=== PATIENT | female | born 1945 | race Caucasian/White ===

== ENCOUNTER 2017-09-26 11:49 | Inpatient (IN) | payer MEDICARE, MEDICAID ==
[~2017-09-26] VITALS: Ht 170.2 cm; Wt 99.8 kg
[2017-09-26] MEDS ORDERED: [UNRECOGNIZED DRUG - OTHER] (12:07)
[2017-09-26] MEDS ORDERED: DIPHENHYDRAMINE PO (12:07)
[2017-09-26] MEDS ORDERED: methylPREDNISolone SOD SUCC 125 MG/2 ML VIAL ONE (12:15)
[2017-09-26] MEDS ORDERED: DEXTROSE 5% IV ONE (12:15)
[2017-09-26] MEDS ORDERED: methylPREDNISolone SOD SUCC 125 MG/2 ML VIAL IV ONE (12:15)
[2017-09-26] MEDS ORDERED: FAMOTIDINE IV ONE (12:15)
[2017-09-26] MEDS ORDERED: FAMOTIDINE. 20 MG/2 ML VIAL IV ONE ×2 (12:15→12:26)
[2017-09-26] MEDS: FAMOTIDINE. 20 MG/2 ML VIAL IV ONE ×2 (12:20→12:25)
[2017-09-26 12:30] LABS: BASOPHILS % (AUTO) 0.3 % (0.0-2.0); EOSINOPHILS % (AUTO) 0.3 % (0.0-7.0); HEMATOCRIT 40.1 % (31.2-41.9); HEMOGLOBIN 13.3 g/dL (10.9-14.3); LYMPHOCYTES # (AUTO) 1.2 K/uL (20.0-40.0); LYMPHOCYTES % (AUTO) 18.6 % (20.5-51.5); MEAN CORPUSCULAR HEMOGLOBIN 30.1 uug (24.7-32.8); MEAN CORPUSCULAR HGB CONC 33 g/dL (32.3-35.6); MEAN CORPUSCULAR VOLUME 90.8 fL (75.5-95.3); MONOCYTES # (AUTO) 0.5 K/uL (2.0-10.0); MONOCYTES % (AUTO) 7.5 % (0.0-11.0); NEUTROPHILS # (AUTO) 4.7 K/uL (1.8-8.9); NEUTROPHILS % (AUTO) 73.3 % (38.5-71.5); PLATELET COUNT (AUTO) 201 K/uL (179-408); RED BLOOD CELL COUNT(AUTO) 4.42 MIL/uL (3.63-4.92); WHITE BLOOD COUNT (AUTO) 6.5 K/uL (3.8-11.8)
[2017-09-26 12:41] LABS: CREATININE 0.9 mg/dL (0.6-1.3); POTASSIUM 3.5 mmol/L (3.5-5.1)
[2017-09-26 13:02] LABS: BILIRUBIN,DIRECT 0.1 mg/dL (0.0-0.2); BILIRUBIN,TOTAL 0.6 mg/dL (0.2-1.0); TOTAL PROTEIN, SERUM 7.6 g/dL (6.4-8.2)
--- NOTE | 2017-09-26 13:55 | NUR ---
PT RESTING, RA 96%, NO SIGN OF DISTRESS.
--- NOTE | 2017-09-26 14:46 | NUR ---
LISA GILMORE AT BEDSIDE IN ROOM 02A.
--- NOTE | 2017-09-26 14:53 | NUR ---
Pt. admitted to TELE , under care of Dr. 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
--- NOTE | 2017-09-26 15:00 | NUR ---
TRNASFERED TO FLOOR IN STABLE CONDITION.PT BREATHING NORMALLY, NO FACIAL SWELL, ABLE TO SWALLOW WITHOUT DIFFICULTY.
[2017-09-26] MEDS ORDERED: LORAZEPAM 0.5 MG TABLET PO PRN (15:15)
[2017-09-26] MEDS ORDERED: ONDANSETRON 4 MG/2 ML VIAL IV PRN (15:15)
[2017-09-26] MEDS ORDERED: HYDROCODONE/APAP 5-325MG TABLET PO PRN (15:15)
[2017-09-26] MEDS ORDERED: IPRATROPIUM BROMIDE 0.5 MG/2.5 ML NEBU NEB PRN (15:45)
[2017-09-26] MEDS ORDERED: ALBUTEROL SULFATE 2.5 MG/3 ML NEBU NEB PRN (15:45)
--- NOTE | 2017-09-26 15:54 | NUR ---
72 YEAR OLD FEMALE ADMITTED TO ROOM 222 FOR ALLERGIC REACTION .PT IS AXOX4.ORIENT THEPT TO ROOM AND SURROUNDINGS. CALLED FOR THE ADMISSION ORDERS
[2017-09-26 15:56] VITALS: BP 117/78
[2017-09-26] MEDS: IV NS 1000 ML 1,000 ML IV PRN (15:59)
[2017-09-26] MEDS: diphenhydrAMINE 50 MG/1 ML VIAL IV SCH ×2 (17:19→23:55)
[2017-09-26] MEDS: HYDROCORTISONE 2.5% CREAM 20 GM TUBE TOP SCH ×2 (17:21→20:56)
[2017-09-26 19:53] LABS: *BILIRUBIN,URIN NEGATIVE (NEGATIVE); *BLOOD, URINE NEGATIVE (NEGATIVE); *CLARITY,URINE CLEAR (CLEAR); *COLOR,URINE YELLOW (YELLOW); *KETONES,URINE 1+ (NEGATIVE); *PROTEIN,URINE NEGATIVE (NEGATIVE); *UROBILINOGEN,URINE 0.2 E.U./dl (NORMAL); LEUKOCYTE ESTERASE ,URINE TRACE (NEGATIVE); NITRITE, URINE NEGATIVE (NEGATIVE); PH,URINE 7.5 (5.0-8.0); UGLUCOSE NEGATIVE (NEGATIVE)
[2017-09-26 20:00] VITALS: BP 152/76
[2017-09-26 20:42] LABS: RBC,URINE 0-3 /HPF (0-3); SQUAMOUS EPITHELIAL CELL,UR MODERATE /HPF (NONE SEEN)
[2017-09-26] MEDS: methylPREDNISolone SOD SUCC 40 MG/ML VIAL IV SCH (20:55)
[2017-09-26] MEDS: FAMOTIDINE. 20 MG/2 ML VIAL IV SCH (20:56)
[2017-09-26] MEDS: ENOXAPARIN SODIUM 40 MG/0.4 ML DISP.SYRIN SQ SCH (20:57)
[2017-09-26] MEDS: ACETAMINOPHEN 325 MG TABLET PO PRN (21:07)
--- NOTE | 2017-09-26 23:55 | NUR ---
NO ACTIVE RASH OR C/O ITCHING AT THIS TIME. NO NEED FOR BENADRYL. CONTINUE TO MONITOR. PT ASLEEP IN NO ACUTE DISTRESS.
[2017-09-27] VITALS: BP 132/65
[2017-09-27 04:00] VITALS: BP 118/61
[2017-09-27] MEDS: methylPREDNISolone SOD SUCC 40 MG/ML VIAL IV SCH ×3 (05:04→20:29)
[2017-09-27] MEDS: diphenhydrAMINE 50 MG/1 ML VIAL IV SCH (05:46)
--- NOTE | 2017-09-27 05:46 | NUR ---
PT VERBALIZES NO C/O ITCHING OR HIVES NOTED AT THIS TIME. NO NEED FOR ROUTINE BENADRYL. CONTINUE TO MONITOR.
--- NOTE | 2017-09-27 06:00 | NUR ---
PT IN ROOM ALERT AWAKE IN NO ACUTE DISTRESS. NO INCREASED EPISODES OF ITCHING OR C/O HIVES AT THIS TIME. DENIES ANY SOB. STATES SLIGHT HEADACHE BUT PREVIOUS [place] WAS ABLE TO HELP. CONTINUE TO MONITOR. CALL LIGHT PLACED WITHIN REACH.
[2017-09-27 06:35] LABS: HEMATOCRIT 36.8 % (31.2-41.9); HEMOGLOBIN 12.1 g/dL (10.9-14.3); LYMPHOCYTES # (AUTO) 0.4 K/uL (20.0-40.0); LYMPHOCYTES % (AUTO) 6.1 % (20.5-51.5); MEAN CORPUSCULAR HGB CONC 33 g/dL (32.3-35.6); MEAN CORPUSCULAR VOLUME 91.5 fL (75.5-95.3); MONOCYTES # (AUTO) 0.1 K/uL (2.0-10.0); MONOCYTES % (AUTO) 1.2 % (0.0-11.0); NEUTROPHILS # (AUTO) 6.1 K/uL (1.8-8.9); NEUTROPHILS % (AUTO) 92.7 % (38.5-71.5); PLATELET COUNT (AUTO) 167 K/uL (179-408); RED BLOOD CELL COUNT(AUTO) 4.02 MIL/uL (3.63-4.92); WHITE BLOOD COUNT (AUTO) 6.6 K/uL (3.8-11.8)
[2017-09-27 07:22] LABS: THYROID STIMULATING HORMONE 0.353 mIU/mL (0.358-3.740)
--- NOTE | 2017-09-27 07:37 | NUR ---
PT IN ROOM ALERT AWAKE IN NO ACUTE DISTRESS. NO INCREASED EPISODES OF ITCHING OR C/O HIVES AT THIS TIME. DENIES ANY SOB. CONTINUE TO MONITOR. CALL LIGHT PLACED WITHIN REACH.
[2017-09-27 07:59] LABS: BILIRUBIN,TOTAL 0.2 mg/dL (0.2-1.0); CREATININE 0.7 mg/dL (0.6-1.3); MAGNESIUM 1.8 mg/dL (1.8-2.4); PHOSPHOROUS 2.4 mg/dL (2.5-4.9); TOTAL PROTEIN, SERUM 6.6 g/dL (6.4-8.2)
[2017-09-27] MEDS: ENOXAPARIN SODIUM 40 MG/0.4 ML DISP.SYRIN SQ SCH (08:01)
[2017-09-27] MEDS: HYDROCORTISONE 2.5% CREAM 20 GM TUBE TOP SCH ×2 (08:01→20:58)
[2017-09-27] MEDS: FAMOTIDINE. 20 MG/2 ML VIAL IV SCH ×2 (08:09→20:29)
[2017-09-27] MEDS: ACETAMINOPHEN 325 MG TABLET PO PRN (08:12)
[2017-09-27] MEDS: IV NS 1000 ML 1,000 ML IV PRN (09:23)
[2017-09-27] MEDS ORDERED: NEUTRA PHOS PACKET PO ONE (10:00)
[2017-09-27] MEDS: LEVOFLOXACIN 500 MG/D5W 500 MG in PREMIXED 1 EACH IV SCH (10:40)
--- NOTE | 2017-09-27 11:00 | NUR ---
Pt is awake, alert, hyperverbal, seems very anxious. jumps from one topic to another. still c/o itching uses hydrocortisone cream. call light within reach. bed alarm on
[2017-09-27 11:15] VITALS: BP 115/57
[2017-09-27] MEDS ORDERED: PATIENT MAY USE OWN MED- MD OK PO PRN (14:15)
--- NOTE | 2017-09-27 15:04 | NUR ---
Visited patient to obtain information about food allergies. Patient states she is allergic to latex and has suspected allergic reaction to fennel oil. Provided diet education on 2gm NA. Patient states following low NA diet. Food preferences has been obtained earlier. Addendum: 09/27/17 at [address] Amended: Links added.
[2017-09-27 15:13] VITALS: BP 126/61
[2017-09-27] MEDS: diphenhydrAMINE 50 MG/1 ML VIAL IV PRN (17:41)
--- NOTE | 2017-09-27 20:00 | NUR ---
NSG: Pt is awake, alert, hyperverbal, seems very anxious. jumps from one topic to another. still has gen rashes. uses hydrocortisone cream. call light within reach. bed alarm on.
[2017-09-27 20:03] VITALS: BP 127/64
[2017-09-28] VITALS: BP 124/57
[2017-09-28] MEDS: IV NS 1000 ML 1,000 ML IV PRN (00:40)
[2017-09-28 04:00] VITALS: BP 110/53
--- NOTE | 2017-09-28 05:08 | NUR ---
nsg: pt did not sleep. hyperverbal and seems anxious but denies anxiety, stated she's calm. will notify md of patient's behavior.
--- NOTE | 2017-09-28 05:57 | NUR ---
nsg: pt very paranoid about bp of 115/53, stating she will have congestive heart failure. very anxious, still hyperverbal. will notify md regarding patient's behavior.
[2017-09-28 07:24] LABS: BASOPHILS % (AUTO) 0.1 % (0.0-2.0); HEMATOCRIT 37.8 % (31.2-41.9); HEMOGLOBIN 12.4 g/dL (10.9-14.3); LYMPHOCYTES # (AUTO) 0.6 K/uL (20.0-40.0); LYMPHOCYTES % (AUTO) 3.8 % (20.5-51.5); MEAN CORPUSCULAR HEMOGLOBIN 29.8 uug (24.7-32.8); MEAN CORPUSCULAR HGB CONC 33 g/dL (32.3-35.6); MEAN CORPUSCULAR VOLUME 91.2 fL (75.5-95.3); MONOCYTES # (AUTO) 0.6 K/uL (2.0-10.0); MONOCYTES % (AUTO) 3.6 % (0.0-11.0); NEUTROPHILS % (AUTO) 92.5 % (38.5-71.5); PLATELET COUNT (AUTO) 191 K/uL (179-408); RED BLOOD CELL COUNT(AUTO) 4.15 MIL/uL (3.63-4.92)
[2017-09-28 07:41] LABS: BILIRUBIN,TOTAL 0.3 mg/dL (0.2-1.0); CREATININE 0.7 mg/dL (0.6-1.3); PHOSPHOROUS 2.7 mg/dL (2.5-4.9); POTASSIUM 4.1 mmol/L (3.5-5.1); TOTAL PROTEIN, SERUM 6.8 g/dL (6.4-8.2)
[2017-09-28 07:46] LABS: WHITE BLOOD COUNT (AUTO) 15.2 K/uL (3.8-11.8)
[2017-09-28] MEDS: methylPREDNISolone SOD SUCC 40 MG/ML VIAL IV SCH (08:03)
[2017-09-28] MEDS: LEVOFLOXACIN 500 MG/D5W 500 MG in PREMIXED 1 EACH IV SCH (08:03)
[2017-09-28] MEDS: FAMOTIDINE. 20 MG/2 ML VIAL IV SCH (08:03)
[2017-09-28] MEDS: HYDROCORTISONE 2.5% CREAM 20 GM TUBE TOP SCH ×2 (08:10→21:34)
[2017-09-28 11:30] VITALS: BP 131/67
[2017-09-28 15:40] VITALS: BP 122/57
--- NOTE | 2017-09-28 19:00 | NUR ---
RECEIVED PATIENT IN HER ROOM. SHE IS A/O X4. PLEASANT AND COOPERATIVE. V/S STABLE. SHE IS IN NO ACUTE DISTRESS. SALINE LOCK IN HER RIGHT HAND PATENT AND INTACT. DENIES PAIN AT THIS TIME. SAFETY EMPHASIS. BED AT LOWEST POSITION. WHEELS LOCKED, ROOM FREE FROM CLUTTER, WELL-LIT. WILL CONTINUE TO MONITOR.
[2017-09-28 20:00] VITALS: BP 126/75
[2017-09-28] MEDS: FAMOTIDINE 20 MG TABLET PO SCH (21:33)
[2017-09-28] MEDS: diphenhydrAMINE 50 MG/1 ML VIAL IV PRN (21:42)
--- NOTE | 2017-09-28 21:45 | NUR ---
PATIENT C/O ITCHINESS. BENADRYL 25MG IV PRN GIVEN. WILL CONTINUE TO MONITOR.
--- NOTE | 2017-09-29 06:04 | NUR ---
Patient slept intermittently t/o shift. Hyperverbal. Anxious and interested in being discharged. Kept on Room Air. Vital signs stable. IV site patent and intact. No reaction to meds given. Safety and comfort measures maintained t/o shift. All meds given as ordered. All needs met.
[2017-09-29 06:57] VITALS: BP 122/55
[2017-09-29 07:36] LABS: BILIRUBIN,TOTAL 0.2 mg/dL (0.2-1.0); CREATININE 0.8 mg/dL (0.6-1.3); MAGNESIUM 1.9 mg/dL (1.8-2.4); PHOSPHOROUS 2.3 mg/dL (2.5-4.9); POTASSIUM 3.4 mmol/L (3.5-5.1); TOTAL PROTEIN, SERUM 7.2 g/dL (6.4-8.2)
[2017-09-29 07:51] LABS: BASOPHILS % (AUTO) 0.1 % (0.0-2.0); EOSINOPHILS % (AUTO) 0.1 % (0.0-7.0); HEMATOCRIT 40.3 % (31.2-41.9); HEMOGLOBIN 13.1 g/dL (10.9-14.3); LYMPHOCYTES # (AUTO) 1.9 K/uL (20.0-40.0); LYMPHOCYTES % (AUTO) 14.9 % (20.5-51.5); MEAN CORPUSCULAR HEMOGLOBIN 29.7 uug (24.7-32.8); MEAN CORPUSCULAR HGB CONC 32 g/dL (32.3-35.6); MEAN CORPUSCULAR VOLUME 91.7 fL (75.5-95.3); MONOCYTES % (AUTO) 7.9 % (0.0-11.0); NEUTROPHILS # (AUTO) 9.6 K/uL (1.8-8.9); PLATELET COUNT (AUTO) 208 K/uL (179-408); RED BLOOD CELL COUNT(AUTO) 4.39 MIL/uL (3.63-4.92); WHITE BLOOD COUNT (AUTO) 12.5 K/uL (3.8-11.8)
[2017-09-29] MEDS: FAMOTIDINE 20 MG TABLET PO SCH (08:22)
[2017-09-29] MEDS: HYDROCORTISONE 2.5% CREAM 20 GM TUBE TOP SCH (08:30)
[2017-09-29] MEDS ORDERED: methylPREDNISolone SOD SUCC 40 MG/ML VIAL IV SCH (09:00)
--- NOTE | 2017-09-29 09:24 | NUR ---
pt seen on rounding. pt continues to be alert and oriented x4. no allergic reactions seen. pt given meds and solumedrol. iv site intact. pt continues to go to the restroom on her own. pt is steady on walking. pt verbalizes concern about plastic tape since she states taht she is allergic to latex. applied hydrocortizone cream on affected areas. will continue to monitor.
[2017-09-29] MEDS ORDERED: POTASSIUM CHLORIDE 10 MEQ TAB.PRT.SR PO ONE (11:00)
[2017-09-29] MEDS ORDERED: POTASSIUM PHOSPHATE MM 7.5 MMOL in IV DEXTROSE 5% 100 ML IV ONE (11:00)
[2017-09-29 11:31] VITALS: BP 144/64
[2017-09-29] MEDS ORDERED: NEUTRA PHOS PACKET PO ONE (12:00)
[2017-09-29] MEDS ORDERED: MIRT15TA7 PO (12:32)
[2017-09-29] MEDS ORDERED: PRED-170 PO (12:32)
[2017-09-29] MEDS ORDERED: PRED10TA PO (12:32)
[2017-09-29] MEDS ORDERED: HYDR20CR3 TOP (12:32)
--- NOTE | 2017-09-29 13:46 | NUR ---
pt discharged as ordred by . pt given prescriptions and discharge instructions by kaylee Calero. pt verbalizes understanding. pt given original copy of dc papers and belongings list. pt signed all papers. copies placed in chart. hives have subsided. iv discontinued. vitals stable upon discharge. pt left with all belongings. pt left with daughter. no sob noted. no signs of acute distresss.
[2017-09-29] MEDS ORDERED: MIRTAZAPINE 15 MG TABLET PO SCH (21:00)
[2017-09-30] MEDS ORDERED: predniSONE 10 MG TABLET PO SCH (09:00)
[2017-10-01] MEDS ORDERED: predniSONE 5 MG TABLET PO SCH (09:00)
== END 2017-09-29 13:32 | disposition home or self-care (01) | DRG 607 ==
LOC: ER 11:54 → TELE 15:12 → MED 09-28 10:25
PROVIDERS: ADMIT Internal Medicine; ATTEND Nurse Practitioner Acute Care
DX: L50.0 Allergic urticaria (principal); E44.0 Moderate protein-calorie malnutrition; D69.6 Thrombocytopenia, unspecified; E83.39 Other disorders of phosphorus metabolism; G62.9 Polyneuropathy, unspecified; F31.32 Bipolar disorder, current episode depressed, moderate; E66.9 Obesity, unspecified; F41.9 Anxiety disorder, unspecified; T50.995A Adverse effect of other drugs, medicaments and biological substances, initial encounter; Y92.009 Unspecified place in unspecified non-institutional (private) residence as the place of occurrence of the external cause; K58.9 Irritable bowel syndrome, unspecified; Z91.040 Latex allergy status; Z88.0 Allergy status to penicillin; Z68.34 Body mass index [BMI] 34.0-34.9, adult; G43.909 Migraine, unspecified, not intractable, without status migrainosus; L50.9 Urticaria, unspecified; R42 Dizziness and giddiness; E78.5 Hyperlipidemia, unspecified; G89.29 Other chronic pain; M54.9 Dorsalgia, unspecified; E87.6 Hypokalemia; D72.829 Elevated white blood cell count, unspecified; T38.0X5A Adverse effect of glucocorticoids and synthetic analogues, initial encounter; Y92.230 Patient room in hospital as the place of occurrence of the external cause; E04.1 Nontoxic single thyroid nodule; Z91.81 History of falling; I10 Essential (primary) hypertension; G47.00 Insomnia, unspecified
CPT/HCPCS: 36415; 70030-TC; 71045; 83735; 84100; 84443; 84481; 85025; 85610; 87086; 92523; 93005; A4663; J1200; J1650; J1956; J2920; J2930; J3490; J7030; J7060